=== PATIENT | female | born 1960 | race Two or more races ===

== ENCOUNTER 2017-12-06 15:12 | Inpatient (IN) | payer MEDICARE, MEDICAID ==
[~2017-12-06] VITALS: Ht 149.9 cm; Wt 117.5 kg
[2017-12-06] MEDS ORDERED: LORAZEPAM 0.5 MG TABLET PO PRN (16:00)
[2017-12-06] MEDS ORDERED: MAGNESIUM HYDROXIDE 30 ML UDC PO PRN (16:00)
[2017-12-06] MEDS ORDERED: MAG HYDROX/AL HYDROX/SIMETH 30 ML UDC PO PRN (16:00)
[2017-12-06] MEDS ORDERED: ZIPR80CA2 PO (16:08)
[2017-12-06] MEDS ORDERED: OXCA600T5 PO (16:08)
[2017-12-06] MEDS ORDERED: LISI40TA4 PO (16:08)
[2017-12-06] MEDS ORDERED: LEVE750T4 PO (16:08)
[2017-12-06] MEDS ORDERED: DULO60CA45 PO (16:08)
[2017-12-06] MEDS ORDERED: HYDR-552 PO (16:08)
[2017-12-06] MEDS ORDERED: FURO-145 PO (16:08)
[2017-12-06 16:14] VITALS: BP 120/77
[2017-12-06 16:33] VITALS: BP 120/77
[2017-12-06 19:59] VITALS: BP 98/46
[2017-12-06] MEDS: LISINOPRIL (20MG) 20 MG TABLET PO SCH (21:00)
[2017-12-06] MEDS: FUROSEMIDE 20 MG TABLET PO SCH (21:00)
[2017-12-06] MEDS: LEVETIRACETAM (250 MG) 250 MG TABLET PO SCH (21:46)
[2017-12-06] MEDS: OXCARBAZEPINE 150 MG TABLET PO SCH (21:46)
[2017-12-06] MEDS: ACETAMINOPHEN 325 MG TABLET PO PRN (21:52)
[2017-12-06 22:00] VITALS: BP 108/54
[2017-12-07 07:20] LABS: ALBUMIN 3.3 g/dL (3.4-5.0); BILIRUBIN,TOTAL 0.2 mg/dL (0.2-1.0); CREATININE 0.8 mg/dL (0.6-1.3); POTASSIUM 4.3 mmol/L (3.5-5.1); TOTAL PROTEIN, SERUM 7.1 g/dL (6.4-8.2)
[2017-12-07 07:21] LABS: CHOLESTEROL 156 mg/dL (<200); HDL CHOLESTEROL 71 mg/dL (40-60); LDL 78 mg/dL (0-99); TRIGLYCERIDES 62 mg/dL (30-150)
[2017-12-07 08:00] VITALS: BP 124/78
[2017-12-07] MEDS: LEVETIRACETAM (250 MG) 250 MG TABLET PO SCH ×2 (08:21→21:11)
[2017-12-07] MEDS: OXCARBAZEPINE 150 MG TABLET PO SCH ×2 (08:21→16:43)
[2017-12-07] MEDS: FUROSEMIDE 20 MG TABLET PO SCH (08:22)
[2017-12-07] MEDS: LISINOPRIL (20MG) 20 MG TABLET PO SCH (08:22)
[2017-12-07 16:00] VITALS: BP 113/60
[2017-12-07] MEDS: ACETAMINOPHEN 325 MG TABLET PO PRN (16:42)
[2017-12-07 20:11] VITALS: BP 123/86
[2017-12-07] MEDS: ZIPRASIDONE 20 MG CAPSULE PO SCH (21:11)
[2017-12-08 08:00] VITALS: BP 100/60
[2017-12-08] MEDS: DULOXETINE HCL 30 MG CAPSULE.DR PO SCH (08:45)
[2017-12-08] MEDS: FUROSEMIDE 20 MG TABLET PO SCH (08:45)
[2017-12-08] MEDS: OXCARBAZEPINE 150 MG TABLET PO SCH ×2 (08:45→17:06)
[2017-12-08] MEDS: LEVETIRACETAM (250 MG) 250 MG TABLET PO SCH ×2 (08:48→21:04)
[2017-12-08] MEDS: LISINOPRIL (20MG) 20 MG TABLET PO SCH (08:48)
[2017-12-08] MEDS: HYDROCODONE/APAP 5/325MG 1 EACH TABLET PO PRN (13:06)
[2017-12-08 16:00] VITALS: BP 129/70
[2017-12-08 20:44] VITALS: BP 124/74
[2017-12-08] MEDS: ZIPRASIDONE 20 MG CAPSULE PO SCH (21:05)
[2017-12-09 08:00] VITALS: BP 142/78
[2017-12-09] MEDS: LISINOPRIL (20MG) 20 MG TABLET PO SCH (08:53)
[2017-12-09] MEDS: DULOXETINE HCL 30 MG CAPSULE.DR PO SCH (08:54)
[2017-12-09] MEDS: LEVETIRACETAM (250 MG) 250 MG TABLET PO SCH ×2 (08:54→21:06)
[2017-12-09] MEDS: FUROSEMIDE 20 MG TABLET PO SCH (08:54)
[2017-12-09] MEDS: OXCARBAZEPINE 150 MG TABLET PO SCH ×2 (08:54→16:39)
[2017-12-09] MEDS: HYDROCODONE/APAP 5/325MG 1 EACH TABLET PO PRN (13:23)
[2017-12-09 16:00] VITALS: BP 132/72
[2017-12-09 20:00] VITALS: BP 139/68
[2017-12-09] MEDS: ZIPRASIDONE 20 MG CAPSULE PO SCH (21:06)
[2017-12-09] MEDS: ZOLPIDEM TARTRATE 10 MG TABLET PO PRN (23:07)
[2017-12-10 08:00] VITALS: BP 119/60
[2017-12-10] MEDS ORDERED: ZIPRASIDONE 20 MG CAPSULE PO SCH (09:00)
[2017-12-10] MEDS: DULOXETINE HCL 30 MG CAPSULE.DR PO SCH (09:11)
[2017-12-10] MEDS: FUROSEMIDE 20 MG TABLET PO SCH (09:12)
[2017-12-10] MEDS: LEVETIRACETAM (250 MG) 250 MG TABLET PO SCH ×2 (09:12→21:19)
[2017-12-10] MEDS: LISINOPRIL (20MG) 20 MG TABLET PO SCH (09:12)
[2017-12-10] MEDS: OXCARBAZEPINE 150 MG TABLET PO SCH ×2 (09:12→17:16)
[2017-12-10 16:00] VITALS: BP 107/64
[2017-12-10 20:00] VITALS: BP 123/90
[2017-12-10] MEDS: ZIPRASIDONE 20 MG CAPSULE PO SCH (21:20)
[2017-12-10] MEDS: ZOLPIDEM TARTRATE 10 MG TABLET PO PRN (23:48)
[2017-12-11] MEDS: DULOXETINE HCL 30 MG CAPSULE.DR PO SCH (07:56)
[2017-12-11] MEDS: FUROSEMIDE 20 MG TABLET PO SCH (07:56)
[2017-12-11] MEDS: OXCARBAZEPINE 150 MG TABLET PO SCH ×2 (07:56→21:31)
[2017-12-11] MEDS: LEVETIRACETAM (250 MG) 250 MG TABLET PO SCH ×2 (07:57→21:32)
[2017-12-11] MEDS: LISINOPRIL (20MG) 20 MG TABLET PO SCH (07:57)
[2017-12-11 08:09] VITALS: BP 117/66
[2017-12-11 15:55] VITALS: BP 123/80
[2017-12-11 20:00] VITALS: BP 109/59
[2017-12-11] MEDS: ZIPRASIDONE 20 MG CAPSULE PO SCH (21:32)
[2017-12-12 08:00] VITALS: BP 105/59
[2017-12-12] MEDS: LISINOPRIL (20MG) 20 MG TABLET PO SCH (09:00)
[2017-12-12] MEDS: DULOXETINE HCL 30 MG CAPSULE.DR PO SCH ×2 (09:00→09:03)
[2017-12-12] MEDS: FUROSEMIDE 20 MG TABLET PO SCH (09:02)
[2017-12-12] MEDS: OXCARBAZEPINE 150 MG TABLET PO SCH ×2 (09:03→21:17)
[2017-12-12] MEDS: LEVETIRACETAM (250 MG) 250 MG TABLET PO SCH ×2 (09:04→21:17)
[2017-12-12 16:00] VITALS: BP 126/61
[2017-12-12 19:42] VITALS: BP 112/67
[2017-12-12] MEDS: ZIPRASIDONE 20 MG CAPSULE PO SCH (21:17)
[2017-12-13] MEDS: ZOLPIDEM TARTRATE 10 MG TABLET PO PRN (00:31)
[2017-12-13 08:00] VITALS: BP 105/87
[2017-12-13 09:03] VITALS: BP 105/87
[2017-12-13] MEDS: LISINOPRIL (20MG) 20 MG TABLET PO SCH (09:03)
[2017-12-13] MEDS: FUROSEMIDE 20 MG TABLET PO SCH (09:04)
[2017-12-13] MEDS: OXCARBAZEPINE 150 MG TABLET PO SCH (09:04)
[2017-12-13] MEDS: LEVETIRACETAM (250 MG) 250 MG TABLET PO SCH (09:05)
[2017-12-13] MEDS: DULOXETINE HCL 30 MG CAPSULE.DR PO SCH (09:05)
== END 2017-12-13 13:00 | disposition home or self-care (01) | DRG 885 ==
LOC: GPS 15:12
PROVIDERS: ADMIT Psychiatry & Neurology Psychiatry; ATTEND Internal Medicine
DX: F33.3 Major depressive disorder, recurrent, severe with psychotic symptoms (principal); E44.1 Mild protein-calorie malnutrition; Z68.43 Body mass index [BMI] 50.0-59.9, adult; F23 Brief psychotic disorder; E66.9 Obesity, unspecified; E78.5 Hyperlipidemia, unspecified; I10 Essential (primary) hypertension; G40.909 Epilepsy, unspecified, not intractable, without status epilepticus; Z87.440 Personal history of urinary (tract) infections; F43.10 Post-traumatic stress disorder, unspecified; Z73.6 Limitation of activities due to disability; F41.9 Anxiety disorder, unspecified
CPT/HCPCS: 36415; 80053-TC; 80061-TC; 87081-TC